=== PATIENT | female | born 1995 | race Caucasian/White ===

== ENCOUNTER 2018-10-29 09:59 | Emergency (ER) | payer BC ==
[2018-10-29 10:23] VITALS: BP 126/70
--- NOTE | 2018-10-29 11:54 | UC ---
Complaint Female HPI - HPI Summary HPI Summary: 4 DAYS OF URINARY FREQUENCY, URGENCY AND DISCOMFORT. NO FEVER, NAUSEA, BACK PAIN. - History Of Current Complaint Chief Complaint: UCGU Stated Complaint: URINE ISSUES Time Seen by Provider: 10/29/18 11:13 Hx Obtained From: Patient Hx Last Menstrual Period: 10/18/18 Onset/Duration: Gradual Onset, Lasting Days, Still Present Timing: Constant Severity Initially: Moderate Severity Currently: Moderate Pain Intensity: 5 Pain Scale Used: 0-10 Numeric Character: Burning Aggravating Factor(s): Urination Alleviating Factor(s): Nothing Associated Signs And Symptoms: Negative: Fever, Back Pain, Vaginal Bleeding/ Discharge, Nausea - Allergies/Home Medications Allergies/Adverse Reactions: Allergies Allergy/AdvReac Type Severity Reaction Status Date / Time No Known Allergies Allergy Verified 10/29/18 10:16 Home Medications: Home Medications Norgestimate-Ethinyl Estradiol [Tri-Sprintec Tablet] 1 tab PO DAILY 10/29/18 [ History Confirmed 10/29/18] PMH/Surg Hx/FS Hx/Imm Hx Previously Healthy: Yes - Surgical History Surgical History: None - Family History Known Family History: Positive: Non-Contributory - Social History Alcohol Use: Occasionally Substance Use Type: None Smoking Status (MU): Never Smoked Tobacco Review of Systems All Other Systems Reviewed And Are Negative: Yes Constitutional: Positive: Negative Respiratory: Positive: Negative Cardiovascular: Positive: Negative Genitourinary: Positive: Dysuria, Frequency, Urgency Physical Exam Triage Information Reviewed: Yes Appearance: Well-Appearing, No Pain Distress, Well-Nourished Vital Signs: Initial Vital Signs Temp 98.7 F 10/29/18 10:13 Pulse 100 10/29/18 10:13 Resp 20 10/29/18 10:13 BP 126/70 10/29/18 10:13 Pulse Ox 100 10/29/18 10:13 Laboratory Tests 10/29/18 10/29/18 10:42 10:44 POC Urine Color Hetal POC Urine Clarity Slightly cloudy POC Urine pH 7.0 POC Ur Specif Grulla 1.015 POC Urine Protein Negative POC Ur Glucose (UA) Negative POC Urine Ketones Negative POC Urine Blood Negative POC Urine Nitrite Negative POC Urine Bilirubin Negative POC Urine Urobilinogen 0.2 POC U Leukocyte Esteras 1+ A POC Ur Test Negative Vital Signs Reviewed: Yes Eyes: Positive: Conjunctiva Clear ENT: Positive: Hearing grossly normal Neck: Positive: Supple Respiratory: Positive: No respiratory distress, No accessory muscle use Cardiovascular: Positive: Pulses Normal Abdomen Description: Positive: Soft, Other: - MILD SUPRAPUBIC TENDERNESS. Negative: CVA Tenderness (R), CVA Tenderness (L), Distended, Guarding Musculoskeletal: Positive: No Edema Neurological: Positive: Alert Psychological: Positive: Age Appropriate Behavior Skin: Negative: Rashes Complaint Female Dx - Differential Dx/Diagnosis Provider Diagnosis: UTI (urinary tract infection) Discharge - Sign-Out/Discharge Documenting (check all that apply): Patient Departure All imaging exams completed and their final reports reviewed: No Studies - Discharge Plan Condition: Stable Disposition: HOME Prescriptions: Sulfamethox/Trimethoprim DS* [Bactrim DS 800/160 TAB*] 1 tab PO BID #10 tab Patient Education Materials: Urinary Tract Infection in Women (ED) Referrals: Paddy QUIÑONEZ,Paris Garcia [Medical Doctor] - If Needed Additional Instructions: WILL COVER WITH ANTIBIOTICS BASED ON FINDING BACTERIA IN YOUR URINE. SPECIMEN WILL BE SENT FOR CULTURE AND WE WILL CALL YOU IF YOUR MEDICATION NEEDS TO BE CHANGED. BE AWARE THAT TAKING ANTIBIOTICS AT THE SAME TIME YOUR ORAL CONTRACEPTIVE PILL MAY DECREASE THE CONTRACEPTIVE EFFICACY. BE SURE TO USE BARRIER METHODS OF BACKUP FOR CONTRACEPTION FOR THE REMAINDER OF THIS CYCLE AND YOUR NEXT CYCLE TO HELP PREVENT . - Billing Disposition and Condition Condition: STABLE Disposition: Home
== END 2018-10-29 11:55 | disposition home or self-care (01) ==
LOC: UCEAST 09:59
DX: N39.0 Urinary tract infection, site not specified (principal); R10.30 Lower abdominal pain, unspecified; Z32.02 Encounter for pregnancy test, result negative; Z79.3 Long term (current) use of hormonal contraceptives
CPT/HCPCS: 81003; 84702; 87077; 87086; 87186; 99201; G0463